=== PATIENT | female | born 1935 | race Caucasian/White ===

== ENCOUNTER 2017-04-28 10:14 | Inpatient (IN) ==
[2017-04-28 11:28] LABS: Basophils % 0.4 % (0.0-0.8); Eosinophils # 0.2 10*3/uL (0.0-0.87); Eosinophils % 3.1 % (0.00-10.9); Hematocrit 38.4 VOL% (35.7-47.0); Hemoglobin 12.9 GM/DL (12.0-16.0); Immature Granulocytes % 0.4 %; Immature Granulocytes Absolute 0.03 #; Lymphocytes # 1.3 10*3/uL (1.4-4.0); Lymphocytes % 18.7 % (21.3-54.2); Mean Corpuscular HGB Conc 33.6 GM/DL (32-36); Mean Corpuscular Hemoglobin 27 PG (27-34); Mean Corpuscular Volume 80.5 FL (87-102); Mean Platelet Volume 9.9 FL (9.6-12.0); Monocytes # 0.5 10*3/uL (0.11-0.8); Neutrophils # 5.1 10*3/uL (1.4-7.4); Neutrophils % 70.4 % (38.7-73.9); Platelet Count 199 T/CUMM (130-400); Red Blood Count 4.77 MC/CUMM (3.8-5.5); Red Cell Distribution Width 13.6 % (9.3-17.3); White Blood Count 7.2 T/CUMM (4-12)
[2017-04-28 11:36] LABS: INR 1.1; PT Patient Result 11.2 SECS; Partial Thromboplastin Time 23.8 SECS (0-40)
[2017-04-28 11:51] LABS: Apearance,Urine CLEAR (Clear); Bacteria,Urine Occasional /HPF (Few); Bilirubin,Urine Negative (Negative); Blood, Urine Negative (Negative); Glucose,Urine (UA) Negative (Negative); Ketones,Urine Negative (Negative); Mucus,Urine Occasional /LPF (Occasional); Nitrite,Urine Positive (Negative); Protein,Urine Negative; RBC,Urine 1 /HPF (0-4); Squamous Epithelial Cell,Urine Occasional /HPF (0-10); Urine Color Yellow (Yellow); Urine Specific Gravity 1.011 (1.001-1.035); Urine Urobilinogen < 2.0 EU/DL (0.2-1.0); WBC,Urine 9 /HPF (0-6)
[2017-04-28 11:58] LABS: Alanine Aminotransferase 21 U/L (13-56); Albumin 3.6 G/DL (3.4-5.0); Alkaline Phosphatase 116 U/L (45-117); Aspartate Amino Transferase 17 U/L (0-37); Blood Urea Nitrogen 24 MG/DL (7-18); Glucose 88 MG/DL (74-106); Osmolality,Calculated 285.1 MOS/KG (273-304); Potassium 4.1 MMOL/L (3.5-5.1); Sodium 142 MMOL/L (136-145); Total Protein 7.4 G/DL (6.4-8.3); Troponin I Only < 0.015 NG/ML (0.00-0.045)
[2017-04-28] MEDS ORDERED: LEVOFLOXACIN INJ 500 MG in PREMIX 1 EACH IV STA (12:02)
[2017-04-28] MEDS ORDERED: LEVOFLOXACIN INJ 100 ML IV ONE (12:12)
[2017-04-28] MEDS ORDERED: GLUCAGON 1 MG VIAL IM PRN (13:43)
[2017-04-28] MEDS ORDERED: ONDANSETRON 4 MG/2 ML VIAL IV PRN (13:43)
[2017-04-28] MEDS ORDERED: ASPIRIN 325 MG TABLET PO SCH (13:43)
[2017-04-28] MEDS ORDERED: LABETALOL 20 MG/4 ML SYRINGE IV PRN (13:43)
[2017-04-28] MEDS ORDERED: DEXTROSE 50% 25 GM/50 ML VIAL IV PRN (13:43)
[2017-04-28] MEDS ORDERED: ACETAMINOPHEN 325 MG TABLET PO PRN (13:43)
[2017-04-28] MEDS: SODIUM CHLORIDE 0.9% 1,000 ML IV SCH (14:23)
[2017-04-28] MEDS: PANTOPRAZOLE 40 MG TABLET PO SCH (14:41)
[2017-04-28 14:55] LABS: Risk Ratio 3.66; VLDL CHOLESTEROL 18.4 MG/DL
[2017-04-28 15:08] LABS: Barbiturates Screen,Urine Negative (Negative); Benzodiazepines Screen,Urine Negative (Negative); Cannabinoid Screen,Urine Negative (Negative); Opiate Screen,Urine Negative (Negative); Phencyclidine Screen,Urine Negative (Negative)
[2017-04-28] MEDS ORDERED: CLOPIDOGREL 75 MG TABLET PO SCH (16:00)
[2017-04-28] MEDS: INSULIN LISPRO 100 UNIT/ML SUBCUT SCH ×2 (17:00→21:30)
[2017-04-28 18:16] LABS: Ammonia 15 UMOL/L (11-32)
[2017-04-28] MEDS ORDERED: QUEtiapine 25 MG TABLET PO SCH (19:30)
[2017-04-29] MEDS: SODIUM CHLORIDE 0.9% 1,000 ML IV SCH (02:30)
[2017-04-29 05:41] LABS: Basophils % 0.6 % (0.0-0.8); Eosinophils # 0.2 10*3/uL (0.0-0.87); Eosinophils % 2.8 % (0.00-10.9); Hematocrit 31.1 VOL% (35.7-47.0); Hemoglobin 10.3 GM/DL (12.0-16.0); Immature Granulocytes % 0.4 %; Immature Granulocytes Absolute 0.02 #; Lymphocytes # 1.5 10*3/uL (1.4-4.0); Lymphocytes % 27.3 % (21.3-54.2); Mean Corpuscular HGB Conc 33.1 GM/DL (32-36); Mean Corpuscular Hemoglobin 26 PG (27-34); Mean Corpuscular Volume 79.7 FL (87-102); Mean Platelet Volume 9.9 FL (9.6-12.0); Monocytes # 0.4 10*3/uL (0.11-0.8); Monocytes % 7.9 % (1.7-12.7); Neutrophils # 3.3 10*3/uL (1.4-7.4); Platelet Count 166 T/CUMM (130-400); Red Cell Distribution Width 13.6 % (9.3-17.3); White Blood Count 5.5 T/CUMM (4-12)
[2017-04-29 06:15] LABS: Calcium 8.4 MG/DL (8.5-10.1); Osmolality,Calculated 290.8 MOS/KG (273-304); Potassium 3.9 MMOL/L (3.5-5.1); Risk Ratio 4.38; VLDL CHOLESTEROL 22.8 MG/DL
[2017-04-29] MEDS ORDERED: LEVOTHYROXINE 25 MCG TABLET PO SCH (07:00)
[2017-04-29] MEDS ORDERED: ATORVASTATIN 20 MG TABLET PO SCH (09:00)
[2017-04-29] MEDS ORDERED: ASPIRIN EC 81 MG TABLET PO SCH (09:00)
[2017-04-29] MEDS: PANTOPRAZOLE 40 MG TABLET PO SCH (10:50)
[2017-04-29] MEDS: INSULIN LISPRO 100 UNIT/ML SUBCUT SCH ×2 (10:50→12:36)
[2017-04-29] MEDS ORDERED: ATORVASTATIN 40 MG TABLET PO SCH (11:02)
[2017-04-29 12:36] VITALS: BP 142/65
[2017-04-29] MEDS ORDERED: LEVOFLOXACIN INJ 750 MG in PREMIX 1 EACH IV SCH (13:30)
[2017-04-30] MEDS ORDERED: CLOPIDOGREL 75 MG TABLET PO SCH (09:00)
== END 2017-04-29 14:45 | DRG 64 ==
LOC: N.ED 10:14 → N.EDINP 12:11 → N.2E 13:42
PROVIDERS: ADMIT Internal Medicine; ATTEND Internal Medicine